=== PATIENT | male | born 1985 | race Caucasian/White ===

== ENCOUNTER 2017-11-29 07:36 | Emergency (ER) | payer OTHER ==
[~2017-11-29] VITALS: Ht 185.4 cm; Wt 95.2 kg
[~2017-11-29 07:36] MED LIST: AZIT250 PO; CIPR500 PO; CREON PO; KALYDECO PO; LEVE500 PO; SULTRISS PO
[2017-11-29] MEDS ORDERED: ALBU90OI INH (08:30)
[2017-11-29] MEDS ORDERED: Ventolin5 MG/1 ML (08:30)
[2017-11-29] MEDS ORDERED: AZIT500 PO (08:30)
[2017-11-29] MEDS ORDERED: Esgic Tablet1 EACH PO (08:31)
[2017-11-29] MEDS ORDERED: DIVA500ER PO (08:31)
== END 2017-11-29 10:09 | disposition home or self-care (01) ==
LOC: ER 07:36
DX: R51 Headache (principal); G40.909 Epilepsy, unspecified, not intractable, without status epilepticus; Z79.899 Other long term (current) drug therapy
CPT/HCPCS: 96361; 96374; 96375; 99283; J1100; J1200; J1885; J2765; J7030

== ENCOUNTER 2017-12-02 06:46 | Emergency (ER) | payer OTHER ==
[~2017-12-02] VITALS: Ht 185.4 cm; Wt 99.8 kg
[~2017-12-02 06:46] MED LIST changes: +ALBU90OI INH; +AZIT500 PO; +DIVA500ER PO; +Esgic Tablet1 EACH PO; +Ventolin5 MG/1 ML
[2017-12-02] MEDS ORDERED: CAYSTON75 MG/1 ML INH (07:23)
[2017-12-02 10:07] LABS: BASOPHILS ABSOLUTE AUTO 0.01 K/mm3 (0.00-0.23); BASOPHILS PERCENT AUTO 0 % (0-2); EOSINOPHILS PERCENT AUTO 0 % (0-6); Hematocrit 36.6 % (37.0-53.0); Hemoglobin 12.5 g/dL (13.5-17.5); IMMATURE GRAN ABSOLUTE AUTO 0.06 K/mm3 (0.00-0.10); IMMATURE GRAN PERCENT AUTO 1 % (0-1); LYMPHOCYTES ABSOLUTE AUTO 1.18 K/mm3 (0.84-5.20); LYMPHOCYTES PERCENT AUTO 16 % (21-46); MONOCYTES ABSOLUTE AUTO 1.11 K/mm3 (0.16-1.47); MONOCYTES PERCENT AUTO 15 % (4-13); Mean Corpuscular HGB 32.6 pg (26.0-34.0); Mean Corpuscular HGB Conc 34.2 g/dL (31.5-36.5); Mean Corpuscular Volume 96 fL (80-100); Mean Platelet Volume 9.2 fL (9.1-12.4); NEUTROPHILS ABSOLUTE AUTO 4.96 K/mm3 (1.96-9.15); NEUTROPHILS PERCENT AUTO 68 % (41-73); Platelet Count 243 K/mm3 (150-400); RDW Coefficient Variation 13.2 % (11.7-14.2); RDW Standard Deviation 47.1 fL (35.1-46.3); Red Blood Cell Count 3.83 M/mm3 (4.30-5.90); White Blood Cell Count 7.32 K/mm3 (4.00-11.30)
[2017-12-02 10:13] LABS: Alanine Aminotransfer (ALT/SGP 25 U/L (12-78); Albumin, Blood 2.9 g/dL (3.4-5.0); Albumin/Globulin Ratio 0.6 (0.8-1.8); Alk Phos 59 U/L (50-136); Anion Gap 7 mmol/L (6-16); Aspartate Aminotrans (AST/SGOT 15 U/L (12-37); Bilirubin, Total 0.3 mg/dL (0.1-1.0); Blood Urea Nitrogen 11 mg/dL (8-24); Bun/Creatinine Ratio 13.4 (12.0-20.0); CO2, Blood 27 mmol/L (21-32); Chloride, Blood 98 mmol/L (98-108); Creatinine, Blood 0.82 mg/dL (0.60-1.20); Globulin, Blood 4.5 g/dL (2.2-4.0); Glomerular Filtration Rate >60 (60-); Glucose, Blood 101 mg/dL (70-99); Potassium, Blood 3.6 mmol/L (3.5-5.5); Sodium, Blood 132 mmol/L (136-145); Total Protein, Blood 7.4 g/dL (6.4-8.2)
[2017-12-02 10:20] LABS: International Normalized Ratio 1.1; Prothrombin Time Results 11.5 Sec (9.7-11.5)
== END 2017-12-02 13:31 | disposition short-term general hospital (02) ==
LOC: ER 06:46
PROVIDERS: Emergency Medicine
DX: G06.0 Intracranial abscess and granuloma (principal); Z79.899 Other long term (current) drug therapy; Z79.51 Long term (current) use of inhaled steroids; G40.909 Epilepsy, unspecified, not intractable, without status epilepticus
CPT/HCPCS: 36415; 70470; 70553; 80053; 85025; 85610; 85651; 85730; 86140; 96361; 96365; 96375; 99285; A9577; J1100; J1200; J1885; J1953; J2765; J7030; Q9967

== ENCOUNTER 2018-09-15 23:19 | Emergency (ER) | payer MEDICARE, OTHER ==
[~2018-09-15] VITALS: Ht 185.4 cm; Wt 99.8 kg
[~2018-09-15 23:19] MED LIST changes: +CAYSTON75 MG/1 ML INH
[2018-09-16 01:04] LABS: BASOPHILS ABSOLUTE AUTO 0.04 K/mm3 (0.00-0.23); BASOPHILS PERCENT AUTO 0 % (0-2); EOSINOPHILS ABSOLUTE AUTO 0.16 K/mm3 (0.00-0.68); EOSINOPHILS PERCENT AUTO 2 % (0-6); Hematocrit 41.6 % (37.0-53.0); IMMATURE GRAN ABSOLUTE AUTO 0.04 K/mm3 (0.00-0.10); IMMATURE GRAN PERCENT AUTO 0 % (0-1); LYMPHOCYTES ABSOLUTE AUTO 2.67 K/mm3 (0.84-5.20); LYMPHOCYTES PERCENT AUTO 26 % (21-46); MONOCYTES ABSOLUTE AUTO 0.91 K/mm3 (0.16-1.47); MONOCYTES PERCENT AUTO 9 % (4-13); Mean Corpuscular HGB 32.2 pg (26.0-34.0); Mean Corpuscular HGB Conc 33.7 g/dL (31.5-36.5); Mean Corpuscular Volume 96 fL (80-100); Mean Platelet Volume 9.2 fL (9.1-12.4); NEUTROPHILS ABSOLUTE AUTO 6.63 K/mm3 (1.96-9.15); NEUTROPHILS PERCENT AUTO 63 % (41-73); Platelet Count 279 K/mm3 (150-400); RDW Coefficient Variation 13.3 % (11.7-14.2); RDW Standard Deviation 47.1 fL (35.1-46.3); Red Blood Cell Count 4.35 M/mm3 (4.30-5.90); White Blood Cell Count 10.45 K/mm3 (4.00-11.30)
[2018-09-16 01:31] LABS: Alanine Aminotransfer (ALT/SGP 26 U/L (12-78); Albumin, Blood 3.4 g/dL (3.4-5.0); Albumin/Globulin Ratio 0.7 (0.8-1.8); Alk Phos 109 U/L (50-136); Anion Gap 8 mmol/L (6-16); Aspartate Aminotrans (AST/SGOT 14 U/L (12-37); Bilirubin, Total 0.2 mg/dL (0.1-1.0); Blood Urea Nitrogen 10 mg/dL (8-24); Bun/Creatinine Ratio 14.2 (12.0-20.0); CO2, Blood 28 mmol/L (21-32); Calcium, Blood 8.9 mg/dL (8.5-10.1); Chloride, Blood 103 mmol/L (98-108); Globulin, Blood 4.9 g/dL (2.2-4.0); Glomerular Filtration Rate >60 (60-); Glucose, Blood 101 mg/dL (70-99); Potassium, Blood 4.1 mmol/L (3.5-5.5); Sodium, Blood 139 mmol/L (136-145); Total Protein, Blood 8.3 g/dL (6.4-8.2); Troponin I <0.015 ng/mL (0.000-0.040)
== END 2018-09-16 01:54 | disposition home or self-care (01) ==
LOC: ER 23:19
PROVIDERS: Emergency Medicine
DX: R07.9 Chest pain, unspecified (principal); G40.909 Epilepsy, unspecified, not intractable, without status epilepticus; Z79.2 Long term (current) use of antibiotics; Z79.899 Other long term (current) drug therapy
CPT/HCPCS: 36415; 71046; 80053; 84484; 85025; 93005; 93010; 99284-25

== ENCOUNTER 2019-09-08 14:10 | Emergency (ER) | payer MEDICARE, OTHER ==
[~2019-09-08] VITALS: Ht 188 cm; Wt 104.3 kg
[2019-09-08 14:38] LABS: BASOPHILS ABSOLUTE AUTO 0.04 K/mm3 (0.00-0.23); BASOPHILS PERCENT AUTO 1 % (0-2); EOSINOPHILS ABSOLUTE AUTO 0.22 K/mm3 (0.00-0.68); EOSINOPHILS PERCENT AUTO 3 % (0-6); Hematocrit 42.3 % (37.0-53.0); Hemoglobin 14.4 g/dL (13.5-17.5); IMMATURE GRAN ABSOLUTE AUTO 0.07 K/mm3 (0.00-0.10); IMMATURE GRAN PERCENT AUTO 1 % (0-1); LYMPHOCYTES ABSOLUTE AUTO 2.36 K/mm3 (0.84-5.20); LYMPHOCYTES PERCENT AUTO 31 % (21-46); MONOCYTES ABSOLUTE AUTO 0.66 K/mm3 (0.16-1.47); MONOCYTES PERCENT AUTO 9 % (4-13); Mean Corpuscular Volume 97 fL (80-100); Mean Platelet Volume 9.2 fL (9.1-12.4); NEUTROPHILS ABSOLUTE AUTO 4.39 K/mm3 (1.96-9.15); NEUTROPHILS PERCENT AUTO 57 % (41-73); Platelet Count 293 K/mm3 (150-400); RDW Coefficient Variation 13.2 % (11.7-14.2); RDW Standard Deviation 47.6 fL (35.1-46.3); Red Blood Cell Count 4.37 M/mm3 (4.30-5.90); White Blood Cell Count 7.74 K/mm3 (4.00-11.30)
[2019-09-08] MEDS ORDERED: TRIKAFTA 100/51 EACH PO (14:46)
[2019-09-08] MEDS ORDERED: ALBU3IS INH (14:47)
[2019-09-08] MEDS ORDERED: OMEPRAZOLE20 MG PO (14:49)
[2019-09-08] MEDS ORDERED: DORN1IH NEB (14:50)
[2019-09-08 14:59] LABS: Alanine Aminotransfer (ALT/SGP 41 U/L (12-78); Albumin, Blood 3.4 g/dL (3.4-5.0); Albumin/Globulin Ratio 0.7 (0.8-1.8); Alk Phos 102 U/L (50-136); Anion Gap 6 mmol/L (6-16); Aspartate Aminotrans (AST/SGOT 21 U/L (12-37); Bilirubin, Total 0.2 mg/dL (0.1-1.0); Blood Urea Nitrogen 9 mg/dL (8-24); Bun/Creatinine Ratio 13.3 (12.0-20.0); CO2, Blood 28 mmol/L (21-32); Calcium, Blood 8.6 mg/dL (8.5-10.1); Chloride, Blood 107 mmol/L (98-108); Creatinine, Blood 0.68 mg/dL (0.60-1.20); Globulin, Blood 4.7 g/dL (2.2-4.0); Glomerular Filtration Rate >60 (60-); Glucose, Blood 122 mg/dL (70-99); Potassium, Blood 4.1 mmol/L (3.5-5.5); Sodium, Blood 141 mmol/L (136-145); Total Protein, Blood 8.1 g/dL (6.4-8.2); Troponin I <0.015 ng/mL (0.000-0.040)
[2019-09-08 15:00] LABS: Dilantin (Phenytoin), Total 0.8 ug/mL (10.0-20.0)
[2019-09-08 15:59] LABS: Valproic Acid 50.2 ug/mL (50.0-100.0)
== END 2019-09-08 16:00 | disposition home or self-care (01) ==
LOC: ER 14:10
PROVIDERS: Emergency Medicine; Physician Assistant
DX: R20.0 Anesthesia of skin (principal); R07.89 Other chest pain; E84.9 Cystic fibrosis, unspecified; G40.909 Epilepsy, unspecified, not intractable, without status epilepticus; Z79.899 Other long term (current) drug therapy
CPT/HCPCS: 36415; 71046; 80053; 80164; 80185; 84484; 85025; 93005; 93010; 99284-25

== ENCOUNTER 2019-09-26 08:43 | Emergency (ER) | payer MEDICARE, OTHER ==
[~2019-09-26] VITALS: Ht 185.4 cm; Wt 108.9 kg
[~2019-09-26 08:43] MED LIST changes: +ALBU3IS INH; +DORN1IH NEB; +OMEPRAZOLE20 MG PO; +TRIKAFTA 100/51 EACH PO
[2019-09-26 09:19] LABS: BASOPHILS ABSOLUTE AUTO 0.05 K/mm3 (0.00-0.23); BASOPHILS PERCENT AUTO 1 % (0-2); EOSINOPHILS ABSOLUTE AUTO 0.27 K/mm3 (0.00-0.68); EOSINOPHILS PERCENT AUTO 3 % (0-6); Hematocrit 43.4 % (37.0-53.0); Hemoglobin 14.8 g/dL (13.5-17.5); IMMATURE GRAN ABSOLUTE AUTO 0.07 K/mm3 (0.00-0.10); IMMATURE GRAN PERCENT AUTO 1 % (0-1); LYMPHOCYTES ABSOLUTE AUTO 3.34 K/mm3 (0.84-5.20); LYMPHOCYTES PERCENT AUTO 41 % (21-46); MONOCYTES ABSOLUTE AUTO 0.56 K/mm3 (0.16-1.47); MONOCYTES PERCENT AUTO 7 % (4-13); Mean Corpuscular HGB 32.5 pg (26.0-34.0); Mean Corpuscular HGB Conc 34.1 g/dL (31.5-36.5); Mean Corpuscular Volume 95 fL (80-100); Mean Platelet Volume 8.9 fL (9.1-12.4); NEUTROPHILS PERCENT AUTO 47 % (41-73); Platelet Count 293 K/mm3 (150-400); RDW Standard Deviation 45.2 fL (35.1-46.3); Red Blood Cell Count 4.55 M/mm3 (4.30-5.90); White Blood Cell Count 8.09 K/mm3 (4.00-11.30)
[2019-09-26 09:34] LABS: Alanine Aminotransfer (ALT/SGP 37 U/L (12-78); Albumin, Blood 3.5 g/dL (3.4-5.0); Albumin/Globulin Ratio 0.7 (0.8-1.8); Alk Phos 94 U/L (50-136); Anion Gap 5 mmol/L (6-16); Aspartate Aminotrans (AST/SGOT 14 U/L (12-37); Bilirubin, Total 0.4 mg/dL (0.1-1.0); Blood Urea Nitrogen 13 mg/dL (8-24); Bun/Creatinine Ratio 17.7 (12.0-20.0); CO2, Blood 28 mmol/L (21-32); Chloride, Blood 105 mmol/L (98-108); Creatinine, Blood 0.74 mg/dL (0.60-1.20); Globulin, Blood 4.8 g/dL (2.2-4.0); Glomerular Filtration Rate >60 (60-); Glucose, Blood 107 mg/dL (70-99); Potassium, Blood 4.3 mmol/L (3.5-5.5); Sodium, Blood 138 mmol/L (136-145); Total Protein, Blood 8.3 g/dL (6.4-8.2)
== END 2019-09-26 10:40 | disposition home or self-care (01) ==
LOC: ER 08:43
PROVIDERS: Physician Assistant
DX: R51 Headache (principal); Z79.899 Other long term (current) drug therapy
CPT/HCPCS: 36415; 70450; 80053; 85025; 96374; 96375; 99284-25; J2405; J3010

== ENCOUNTER → 2020-07-12 | Outpatient (CLI) | payer MEDICARE, OTHER ==
[~2020-07-12] MED LIST changes: +COMBIVENT RESPIM4 G1; +FLUT1DIS2; +FLUT1DIS5 INH; +Zithromax500 MG
[2020-07-12 11:18] LABS: Source, Urine Clean Catch
[2020-07-12 11:21] LABS: Appearance, Urine Clear (Clear); Bilirubin, Urine 1+ (Neg); Blood, Urine 1+ (Neg); Color, Urine Yellow (P-Yellow); Glucose Qualitative, Urine Neg (Normal); Ketones, Urine 1+ (Neg); Leukocyte Esterase, Urine Trace (Neg); Nitrite, Urine Neg (Neg); Protein, Urine Trace (Neg); Specific Gravity, Urine 1.015 (1.003-1.022); Urobilinogen, Urine 1+ (Normal)
[2020-07-12 11:41] LABS: Bacteria Not Seen /hpf; Squamous Epithelial Cells Few /hpf (Few); White Blood Cells, Urine 0-2 /hpf (0-5)
== END ==
LOC: LAB EV 10:40 → LAB SHORT 10:40
PROVIDERS: Physician Assistant
DX: R31.9 Hematuria, unspecified (principal)
CPT/HCPCS: 81001; 87086

== ENCOUNTER 2021-09-02 08:05 | Emergency (ER) | payer MEDICARE, OTHER ==
[~2021-09-02] VITALS: Ht 185.4 cm; Wt 104.3 kg
[2021-09-02 11:05] LABS: Influenza B, PCR NEGATIVE (NEGATIVE); Resp Syncytial Virus, PCR NEGATIVE (NEGATIVE); SARS-Cov-2 (COVID-19) PCR, MMC NEGATIVE (NEGATIVE)
[2021-09-02 11:08] LABS: Influenza A, PCR POSITIVE (NEGATIVE)
[2021-09-02] MEDS ORDERED: Tamiflu75 MG PO (11:58)
[2021-09-02] MEDS ORDERED: Ativan1 MG PO (11:59)
== END 2021-09-02 12:12 | disposition home or self-care (01) ==
LOC: ER 08:05
PROVIDERS: Physician Assistant
DX: J10.1 Influenza due to other identified influenza virus with other respiratory manifestations (principal); Z20.822 Contact with and (suspected) exposure to COVID-19; G40.909 Epilepsy, unspecified, not intractable, without status epilepticus; Z79.899 Other long term (current) drug therapy
CPT/HCPCS: 0241U; 71045; 99283-25; A9270

== ENCOUNTER → 2021-10-10 | Outpatient (CLI) | payer MEDICARE, OTHER ==
[~2021-10-10] MED LIST changes: +AMOCLA875 PO; +Ativan1 MG PO; +Tamiflu75 MG PO
[2021-10-11 18:55] LABS: Adenovirus F 40/41 Not Detected (NOT DETECT); Astrovirus Not Detected (NOT DETECT); Campylobacter Sp Not Detected (NOT DETECT); Cryptosporidium Not Detected (NOT DETECT); Cyclospora Cayetanensis Not Detected (NOT DETECT); E. Coli O157 Not Detected (NOT DETECT); Entamoeba Histolytica Not Detected (NOT DETECT); Enteroaggregative E. coli-EAEC Not Detected (NOT DETECT); Enteropathogenic E. coli-EPEC Not Detected (NOT DETECT); Enterotoxigenic E. coli-ETEC Not Detected (NOT DETECT); Giardia Lamblia Not Detected (NOT DETECT); Norovirus GI/GII Not Detected (NOT DETECT); Plesiomonas Shigelloides Not Detected (NOT DETECT); Rotavirus A Not Detected (NOT DETECT); Salmonella Sp Not Detected (NOT DETECT); Sapovirus Not Detected (NOT DETECT); Shiga Toxin-prod E. coli-STEC Not Detected (NOT DETECT); Shigella/Enteroin E. coli-EIEC Not Detected (NOT DETECT); Vibrio Cholerae Not Detected (NOT DETECT); Vibrio Sp Not Detected (NOT DETECT); Yersinia Enterocolitica Not Detected (NOT DETECT)
== END ==
LOC: LAB SHORT 18:00
PROVIDERS: Physician Assistant
DX: K52.9 Noninfective gastroenteritis and colitis, unspecified (principal); R10.84 Generalized abdominal pain
CPT/HCPCS: 0097U

== ENCOUNTER 2021-11-30 08:11 | Day surgery (SDC) | payer MEDICARE, OTHER ==
[~2021-11-30] VITALS: Ht 185.4 cm; Wt 94.8 kg
[2021-11-30] MEDS ORDERED: FAMO20 (09:05)
[2021-11-30] MEDS ORDERED: COMBIVENT RESPIM4 G1 (09:07)
== END 2021-11-30 10:22 | disposition home or self-care (01) ==
LOC: ORSCSDS 08:11
PROVIDERS: Internal Medicine Gastroenterology
PROC: 0DB58ZX Excision of Esophagus, Via Natural or Artificial Opening Endoscopic, Diagnostic (ICD-10-PCS; principal; 2021-11-30 09:30)
PROC: 0DBA8ZX Excision of Jejunum, Via Natural or Artificial Opening Endoscopic, Diagnostic (ICD-10-PCS; principal; 2021-11-30 09:30)
PROC: 0DB68ZX Excision of Stomach, Via Natural or Artificial Opening Endoscopic, Diagnostic (ICD-10-PCS; principal; 2021-11-30 09:30)
PROC: 0DB98ZX Excision of Duodenum, Via Natural or Artificial Opening Endoscopic, Diagnostic (ICD-10-PCS; principal; 2021-11-30 09:30)
DX: R13.10 Dysphagia, unspecified (principal); K21.9 Gastro-esophageal reflux disease without esophagitis; K58.9 Irritable bowel syndrome, unspecified; B96.81 Helicobacter pylori [H. pylori] as the cause of diseases classified elsewhere; Z79.899 Other long term (current) drug therapy
CPT/HCPCS: 88305; 88342; J2704; J7120

== ENCOUNTER 2023-05-04 18:33 | Inpatient (IN) | payer MEDICARE, OTHER ==
[~2023-05-04] VITALS: Ht 185.4 cm; Wt 107.6 kg
[~2023-05-04 18:33] MED LIST changes: +FAMO20
[2023-05-04 19:16] LABS: BASOPHILS ABSOLUTE AUTO 0.04 K/mm3 (0.00-0.23); BASOPHILS PERCENT AUTO 1 % (0-2); EOSINOPHILS ABSOLUTE AUTO 0.16 K/mm3 (0.00-0.68); EOSINOPHILS PERCENT AUTO 2 % (0-6); Hematocrit 43.6 % (37.0-53.0); Hemoglobin 15.5 g/dL (13.5-17.5); IMMATURE GRAN ABSOLUTE AUTO 0.03 K/mm3 (0.00-0.10); IMMATURE GRAN PERCENT AUTO 0 % (0-1); LYMPHOCYTES ABSOLUTE AUTO 1.76 K/mm3 (0.84-5.20); LYMPHOCYTES PERCENT AUTO 23 % (21-46); MONOCYTES ABSOLUTE AUTO 0.71 K/mm3 (0.16-1.47); MONOCYTES PERCENT AUTO 9 % (4-13); Mean Corpuscular HGB 33.5 pg (26.0-34.0); Mean Corpuscular HGB Conc 35.6 g/dL (31.5-36.5); Mean Corpuscular Volume 94 fL (80-100); Mean Platelet Volume 9.6 fL (9.1-12.4); NEUTROPHILS ABSOLUTE AUTO 5.07 K/mm3 (1.96-9.15); NEUTROPHILS PERCENT AUTO 65 % (41-73); Platelet Count 328 K/mm3 (150-400); RDW Coefficient Variation 13.1 % (11.7-14.2); RDW Standard Deviation 45.4 fL (35.1-46.3); Red Blood Cell Count 4.62 M/mm3 (4.30-5.90); White Blood Cell Count 7.77 K/mm3 (4.00-11.30)
[2023-05-04 19:29] LABS: International Normalized Ratio 0.92; Prothrombin Time Results 9.7 Sec (9.7-11.5)
[2023-05-04 19:33] LABS: Albumin, Blood 3.8 g/dL (3.4-5.0); Bilirubin, Total 0.3 mg/dL (0.1-1.0); Bun/Creatinine Ratio 18.2 (12.0-20.0); Calcium, Blood 8.8 mg/dL (8.5-10.1); Creatinine, Blood 0.72 mg/dL (0.60-1.20); Potassium, Blood 3.8 mmol/L (3.5-5.5); Total Protein, Blood 7.8 g/dL (6.4-8.2)
[2023-05-05 05:18] LABS: BASOPHILS ABSOLUTE AUTO 0.03 K/mm3 (0.00-0.23); BASOPHILS PERCENT AUTO 0 % (0-2); EOSINOPHILS ABSOLUTE AUTO 0.07 K/mm3 (0.00-0.68); EOSINOPHILS PERCENT AUTO 1 % (0-6); Hemoglobin 15.2 g/dL (13.5-17.5); IMMATURE GRAN ABSOLUTE AUTO 0.03 K/mm3 (0.00-0.10); IMMATURE GRAN PERCENT AUTO 0 % (0-1); LYMPHOCYTES ABSOLUTE AUTO 1.28 K/mm3 (0.84-5.20); LYMPHOCYTES PERCENT AUTO 17 % (21-46); MONOCYTES ABSOLUTE AUTO 0.48 K/mm3 (0.16-1.47); MONOCYTES PERCENT AUTO 6 % (4-13); Mean Corpuscular HGB 33.2 pg (26.0-34.0); Mean Corpuscular HGB Conc 35.3 g/dL (31.5-36.5); Mean Corpuscular Volume 94 fL (80-100); Mean Platelet Volume 9.6 fL (9.1-12.4); NEUTROPHILS ABSOLUTE AUTO 5.66 K/mm3 (1.96-9.15); NEUTROPHILS PERCENT AUTO 75 % (41-73); Platelet Count 321 K/mm3 (150-400); RDW Coefficient Variation 13.2 % (11.7-14.2); RDW Standard Deviation 45.5 fL (35.1-46.3); Red Blood Cell Count 4.58 M/mm3 (4.30-5.90); White Blood Cell Count 7.55 K/mm3 (4.00-11.30)
[2023-05-05 05:23] VITALS: BP 150/88
[2023-05-05 05:50] LABS: Albumin, Blood 3.5 g/dL (3.4-5.0); Albumin/Globulin Ratio 0.9 (0.8-1.8); Bilirubin, Total 0.4 mg/dL (0.1-1.0); Bun/Creatinine Ratio 10.5 (12.0-20.0); Calcium, Blood 8.9 mg/dL (8.5-10.1); Creatinine, Blood 0.76 mg/dL (0.60-1.20); Total Protein, Blood 7.5 g/dL (6.4-8.2)
--- NOTE | 2023-05-05 06:06 | NUR ---
PT TRANSFER/SHIFT SUMMARY PT TRANFERRED TO PCU 18 FROM ED. PT HAS HAD NO EPISODES OF HEMOPTYSIS SINCE ARRIVAL. VSS. OXYGEN SATURATION MAINTAINED ABOVE 96% ON RA. BP STABLE. HR STABLE. NO CP OR PRESSURE. PT IND IN ROOM. PT NPO. ALERT AND ORIENTED X 4. PER MD PLAN FOR PT TO BE COBRA TRANSFERRED TO [facility] ONCE BED IS AVAILABLE. PT RUDY HAS ACCEPTING DOC AT FACILITY. CALL LIGHT WITHIN REACH. PT RESTING AT THIS TIME. WILL CONT TO MONITOR UNTIL REPORT GIVEN TO NIGHTSHIFT RN.
--- NOTE | 2023-05-05 06:27 | NUR ---
HOME MED BROUGHT TO PHARMACY BY THIS RN
[2023-05-05 07:32] VITALS: BP 128/86
--- NOTE | 2023-05-05 10:37 | NUR ---
CARE ASSUMPTION This RN assumed care at 0700. vital signs stable. patient reports no pain, chest pain/pressure, or shortness of breath. patient is alert and oriented x4. perrla. see shift assessment for further detials. md saha in to see patient this am and discussed plan of care. plan of care is up to date.
[2023-05-05 11:55] VITALS: BP 120/92
[2023-05-05 16:29] VITALS: BP 128/93
[2023-05-05] MEDS ORDERED: Prozac20 MG PO (16:34)
--- NOTE | 2023-05-05 17:41 | NUR ---
shift summary md saha in to see patient today and discussed plan of care. due to patient having blood tinge sputum in cough patient is still awaiting bed for [facility]. per md patient oxygen saturation low limit at 91. md saha has patient npo at midnight for possible procedure tomorrow. md saha has been in touch with md andino and made md andino aware of patient. md saha said to call md andino if patient respiratory status declines so patient can recieve proper treatment. this rn informed discharge rn and will pass long to night nurse. hgb remains stable, see labs. neuro remains unchanged. plan of care up to date. call light within reach
[2023-05-05 20:56] VITALS: BP 125/82
[2023-05-06] VITALS (16 sets, daily range): BP systolic 106–144; BP diastolic 70–101
--- NOTE | 2023-05-06 05:56 | NUR ---
END OF SHIFT SUMMARY PT A/O X4, SR, BP STABLE. LUNGS CTA, CONTINUES TO SPIT UP BLOOD BUT NOT DURING OF AFTER COUGHIG. FEELS SOMETHING IN HIS THROAT BEFORE BLOOD COMES UP. PT STATES HE HAS A GI HISTORY INCLUDING GERD AND HAS SEEN A GI DOCTOR IN THE PAST. OOB AD ANA, VOIDS INDEPENDENTLY. NO BM THIS SHIFT. NPO SINCE MN. SKIN INTACT. PIV X1, FLUSHES WELL. NO FAMILY AT BEDSIDE.
--- NOTE | 2023-05-06 08:54 | NUR ---
OT A&OX4. PT TALKATIVE, PLEASANT, AND COOPERATIVE WITH CARE. PT DENIES PAIN OF ANY KIND. PT DENIES SOB. HR 80'S SR. VITALS STABLE. PT NPO, MORNING PO MEDS HELD. IV KEPPRA GIVEN, IV ZOSYN RUNNING. IV SITE C/D/I, NO SWELLING OR REDNESS, LINE PATENT. AWAITING ON DR. GUERRA TO DISCUSS PLAN. PT RESTING IN BED, CALL LIGHT WITHIN REACH.
--- NOTE | 2023-05-06 10:22 | NUR ---
DR. BARTON SPOKE WITH PT REGARDING ANGIOGRAM WITH EMBOLIZATION. PT STATED HE WANTED TO THINK ABOUT IT BEFORE MAKING A DECISION. DR. BARTON TO CHECK BACK LATER.
[2023-05-06 10:53] LABS: BASOPHILS ABSOLUTE AUTO 0.04 K/mm3 (0.00-0.23); BASOPHILS PERCENT AUTO 1 % (0-2); EOSINOPHILS PERCENT AUTO 3 % (0-6); Hematocrit 41.7 % (37.0-53.0); Hemoglobin 15.1 g/dL (13.5-17.5); IMMATURE GRAN ABSOLUTE AUTO 0.03 K/mm3 (0.00-0.10); IMMATURE GRAN PERCENT AUTO 0 % (0-1); LYMPHOCYTES ABSOLUTE AUTO 2.16 K/mm3 (0.84-5.20); LYMPHOCYTES PERCENT AUTO 29 % (21-46); MONOCYTES ABSOLUTE AUTO 0.65 K/mm3 (0.16-1.47); MONOCYTES PERCENT AUTO 9 % (4-13); Mean Corpuscular HGB Conc 36.2 g/dL (31.5-36.5); Mean Corpuscular Volume 94 fL (80-100); Mean Platelet Volume 9.5 fL (9.1-12.4); NEUTROPHILS ABSOLUTE AUTO 4.45 K/mm3 (1.96-9.15); NEUTROPHILS PERCENT AUTO 59 % (41-73); Platelet Count 310 K/mm3 (150-400); RDW Coefficient Variation 13.3 % (11.7-14.2); RDW Standard Deviation 45.8 fL (35.1-46.3); Red Blood Cell Count 4.44 M/mm3 (4.30-5.90); White Blood Cell Count 7.53 K/mm3 (4.00-11.30)
[2023-05-06 11:23] LABS: Albumin, Blood 3.5 g/dL (3.4-5.0); Albumin/Globulin Ratio 0.9 (0.8-1.8); Bilirubin, Total 0.6 mg/dL (0.1-1.0); Bun/Creatinine Ratio 12.4 (12.0-20.0); Calcium, Blood 9.1 mg/dL (8.5-10.1); Creatinine, Blood 0.89 mg/dL (0.60-1.20); Globulin, Blood 3.7 g/dL (2.2-4.0); Potassium, Blood 3.6 mmol/L (3.5-5.5); Total Protein, Blood 7.2 g/dL (6.4-8.2)
--- NOTE | 2023-05-06 12:05 | NUR ---
THIS RN WITNESSED PT SIGN CONSENT FORM FOR PROCEDURE DUE TO BE PERFORMED BY DR. BARTON. PT'S MOTHER IN ROOM VISITING WITH PT. CALL LIGHT WITHIN REACH.
--- NOTE | 2023-05-06 15:12 | NUR ---
1513 PT NOT IN THIS RN'S CARE, PT TRANSFERRING TO PCAT INSTRUCTOR.
--- NOTE | 2023-05-06 16:36 | NUR ---
SHIFT SUMMARY PT BACK IN THIS RN'S & RAFAEL RN'S CARE AT 1636 FROM PROCEDURE. PT RETURNED WITH ANGIOSEAL TO R GROIN. PT HAD TWO COILS PLACED IN R LUNG. R GROIN SITE WITH NO HEMATOMA, REDNESS, OR BLEEDING AROUND THE SITE. PT TO REMAIN FLAT FOR 1 HR POST PROCEDURE, THEN ELEVATE 15 DEGREES AT A TIME. DIET RESUMED. PT HAS NOT COUGHED UP BLOOD SINCE LAST NIGHT. TRANSFER PERSON, SUSANA, FROM [facility] CALLED TWICE TO GET AN UPDATE REGARDING PT STATUS. SHE STATED SHE WILL CALL BACK IF PT STILL NEEDS TO BE TRANSFERRED AFTER PROCEDURE. PT'S VITALS STABLE, DENIES ANY PAIN, NAUSEA, DIZZINESS POST PROCEDURE. PT RESTING IN BED WITH CALL LIGHT WITHIN REACH. FAMILY AT BEDSIDE WAS GIVEN UPDATE.
[2023-05-07] VITALS (7 sets, daily range): BP systolic 124–147; BP diastolic 91–113
--- NOTE | 2023-05-07 05:01 | NUR ---
SHIFT SUMMARY: Pt stable overnight. No hemoptysis noted. R femoral site WNL. Denies pain, vitals stable on room air. [facility] group reservations coordinator updated.
--- NOTE | 2023-05-07 10:56 | NUR ---
PT WAS UP AND HAD A SHOWER WITH HELP FROM [place]. NO REDNESS, HEMATOMA, BRUISING, OR BLEEDING FROM R GROIN SITE. SITE DRESSING C/D/I. PT RESTING IN BED, CALL LIGHT WITHIN REACH.
[2023-05-07 14:00] LABS: BASOPHILS ABSOLUTE AUTO 0.06 K/mm3 (0.00-0.23); BASOPHILS PERCENT AUTO 1 % (0-2); EOSINOPHILS ABSOLUTE AUTO 0.29 K/mm3 (0.00-0.68); EOSINOPHILS PERCENT AUTO 3 % (0-6); Hematocrit 41.6 % (37.0-53.0); Hemoglobin 14.7 g/dL (13.5-17.5); IMMATURE GRAN ABSOLUTE AUTO 0.05 K/mm3 (0.00-0.10); IMMATURE GRAN PERCENT AUTO 1 % (0-1); LYMPHOCYTES ABSOLUTE AUTO 2.85 K/mm3 (0.84-5.20); LYMPHOCYTES PERCENT AUTO 26 % (21-46); MONOCYTES ABSOLUTE AUTO 1.01 K/mm3 (0.16-1.47); MONOCYTES PERCENT AUTO 9 % (4-13); Mean Corpuscular HGB 33.6 pg (26.0-34.0); Mean Corpuscular HGB Conc 35.3 g/dL (31.5-36.5); Mean Corpuscular Volume 95 fL (80-100); Mean Platelet Volume 9.5 fL (9.1-12.4); NEUTROPHILS ABSOLUTE AUTO 6.77 K/mm3 (1.96-9.15); NEUTROPHILS PERCENT AUTO 61 % (41-73); Platelet Count 302 K/mm3 (150-400); RDW Coefficient Variation 13.3 % (11.7-14.2); RDW Standard Deviation 47.1 fL (35.1-46.3); Red Blood Cell Count 4.38 M/mm3 (4.30-5.90); White Blood Cell Count 11.03 K/mm3 (4.00-11.30)
[2023-05-07 14:09] LABS: Albumin, Blood 3.2 g/dL (3.4-5.0); Albumin/Globulin Ratio 0.8 (0.8-1.8); Bilirubin, Total 0.4 mg/dL (0.1-1.0); Calcium, Blood 9.2 mg/dL (8.5-10.1); Creatinine, Blood 1.15 mg/dL (0.60-1.20); Globulin, Blood 3.9 g/dL (2.2-4.0); Potassium, Blood 3.6 mmol/L (3.5-5.5); Total Protein, Blood 7.1 g/dL (6.4-8.2)
--- NOTE | 2023-05-07 14:40 | NUR ---
TOOK PT FOR SHORT WALK AROUND THE UNIT. PT DENIED SOB, CHEST PAIN/PRESSURE.
--- NOTE | 2023-05-07 17:06 | NUR ---
SHIFT SUMMARY NO ACUTE CHANGES, SEE PREVIOUS NOTES. PT CONTINUES TO DENY CHEST PAIN/PRESSURE AND SOB. VITALS STABLE. POSSIBLE DISCHARGE TOMORROW PER DR. MCADAMS AND DR. GUERRA. PT RESTING IN BED, CALL LIGHT WITHIN REACH.
[2023-05-08 00:15] VITALS: BP 118/81
[2023-05-08 05:00] VITALS: BP 134/100
--- NOTE | 2023-05-08 06:16 | NUR ---
SHIFT SUMMARY A/OX4, IND FOR TRANSFERS. TELE SR 70-90S, DENIES CHEST PAIN/PRESSURE. SPO2 >92% ON RA, NO EPISODES OF HEMOPTYSIS THIS SHIFT. VSS, NO ACUTE CHANGES AT THIS TIME. BED IN LOWEST POSITION WITH CALL LIGHT IN REACH. WILL CONTINUE TO MONITOR AND REPORT TO ONCOMING RN.
[2023-05-08 07:39] VITALS: BP 138/102
--- NOTE | 2023-05-08 09:07 | NUR ---
PT A&OX4 PLEASANT AND COOPERTIVE WITH CARE. LUNGS CLEAR, PT DENIES SOB. HR SR 70'S-90'S, PT DENIES CHEST PAIN/PRESSURE. VITALS STABLE. DR. GUERRA BY FOR VISIT WITH PT, PT PLANNED TO BE DISCHARGED TODAY.
--- NOTE | 2023-05-08 09:56 | NUR ---
DISCHARGE NOTE PT DISCHARGED AND LEFT WITH ALL OF HIS BELONGINGS. DISCHARGE INSTRUCTIONS PROVIDED BY THIS RN. SERGIO PATIENT COAL CARRIER WALKED PT OUT TO HIS MOMS CAR WHERE SHE WAS WAITING TO TAKE HIM HOME.
== END 2023-05-08 09:56 | disposition home or self-care (01) | DRG 167 ==
LOC: ER 18:33 → PCU 18:34
PROVIDERS: Family Medicine; Student in an Organized Health Care Education/Training Program; ADMIT Internal Medicine
PROC: 03L Upper Arteries, Occlusion (ICD-10-PCS; principal; 2023-05-06)
PROC: B3101ZZ Fluoroscopy of Thoracic Aorta using Low Osmolar Contrast (ICD-10-PCS; 2023-05-06)
DX: R04.2 Hemoptysis (principal); E84.9 Cystic fibrosis, unspecified; K86.81 Exocrine pancreatic insufficiency; R00.0 Tachycardia, unspecified; G40.909 Epilepsy, unspecified, not intractable, without status epilepticus; I50.9 Heart failure, unspecified; G47.00 Insomnia, unspecified; F41.9 Anxiety disorder, unspecified; Z79.899 Other long term (current) drug therapy; Z87.442 Personal history of urinary calculi; Z98.890 Other specified postprocedural states
CPT/HCPCS: 36415; 71046; 71260; 76937; 80053; 83735; 85025; 85610; 85730; 93005; 93010; 94640; 94664; 94760; 94762; 96365-59; 96375; 96376; 99152; 99153; 99285-25; A9270; C1760; C1769; C1887; C1894; G0378; J1644; J1953; J2250; J2543; J3010; J7040; Q9967

== ENCOUNTER 2023-10-02 12:07 | Day surgery (SDC) | payer MEDICARE, OTHER ==
[~2023-10-02] VITALS: Ht 185.4 cm; Wt 114.8 kg
[~2023-10-02 12:07] MED LIST changes: +Prozac20 MG PO
[2023-10-02] MEDS ORDERED: MULVITA (12:24)
[2023-10-02 13:30] VITALS: BP 114/77
--- NOTE | 2023-10-02 13:32 | NUR ---
10/02/23 1332 Jenifer Boyd IV DC'D, CATH INTACT. PT TOLERATED WELL. GAUZE/COBAN IN PLACE
== END 2023-10-02 13:32 | disposition home or self-care (01) ==
LOC: ORSCSDS 12:07
PROVIDERS: Specialist
PROC: 0DB68ZX Excision of Stomach, Via Natural or Artificial Opening Endoscopic, Diagnostic (ICD-10-PCS; principal; 2023-10-02 13:15)
PROC: 0D758ZZ Dilation of Esophagus, Via Natural or Artificial Opening Endoscopic (ICD-10-PCS; principal; 2023-10-02 13:15)
DX: R13.10 Dysphagia, unspecified (principal); R10.32 Left lower quadrant pain; K29.70 Gastritis, unspecified, without bleeding; K21.9 Gastro-esophageal reflux disease without esophagitis; K44.9 Diaphragmatic hernia without obstruction or gangrene; E84.9 Cystic fibrosis, unspecified; E66.9 Obesity, unspecified; Z68.32 Body mass index [BMI] 32.0-32.9, adult; Z79.899 Other long term (current) drug therapy
CPT/HCPCS: 88305; 88342; J2250; J2704; J7120